=== PATIENT | female | born 1950 | race Caucasian/White ===

== ENCOUNTER 2024-08-14 22:16 | Emergency (ER) | payer MEDICARE, BC ==
[2024-08-14] MEDS ORDERED: Sodium Chloride 0.9% 10 ML Syringe FLUSH PRN (22:47)
[2024-08-14 23:06] LABS: BASOPHILS PERCENT AUTO 0.3 % (0.0-1.0); EOSINOPHILS ABSOLUTE AUTO 0.1 K/mm3 (0.0-0.4); EOSINOPHILS PERCENT AUTO 1.8 % (0.0-6.0); HEMATOCRIT 38.5 % (37.0-47.0); HEMOGLOBIN 12.8 gm/dl (12.0-16.0); IMMATURE GRAN ABSOLUTE AUTO 0.02 K/mm3 (0.00-0.05); IMMATURE GRAN PERCENT AUTO 0.3 % (0.0-0.4); LYMPHOCYTES ABSOLUTE AUTO 1.6 K/mm3 (1.0-4.8); LYMPHOCYTES PERCENT AUTO 22.7 % (24.0-44.0); MEAN CORPUSCULAR HEMOGLOBIN 29.2 pg (28.0-32.0); MEAN CORPUSCULAR HGB CONC 33.2 g/dl (32.0-36.0); MEAN CORPUSCULAR VOLUME 87.7 fl (83.0-99.0); MEAN PLATELET VOLUME 8.6 fl (9.4-12.3); MONOCYTES ABSOLUTE AUTO 0.7 K/mm3 (0.0-0.8); MONOCYTES PERCENT AUTO 9.9 % (0.0-8.0); NEUTROPHILS ABSOLUTE AUTO 4.7 K/mm3 (1.8-7.7); PLATELET COUNT,PLT 254 K/mm3 (150-400); RED BLOOD CELL COUNT 4.39 M/mm3 (4.10-5.30); WHITE BLOOD CELL COUNT,WBC 7.15 K/mm3 (3.9-11.3)
[2024-08-14] MEDS: Labetalol 100 MG/20 ML MDV IVPUSH ONE (23:12)
[2024-08-14 23:31] LABS: ALBUMIN 4.1 g/dl (3.4-5.0); BILIRUBIN TOTAL 0.4 mg/dL (0.2-1.0); CALCIUM 10.1 mg/dL (8.5-10.1); EST CRCL DRUG DOSING (CG) 41.97 mL/min; PROTEIN TOTAL,TP 8.2 g/dl (6.4-8.2)
[2024-08-15] MEDS: Iopamidol 755 Mg/ML 100 ML Bottle IVPUSH ONE (02:08)
== END 2024-08-15 03:14 | disposition home or self-care (01) ==
LOC: JD.ED 22:16
DX: R07.89 Other chest pain (principal); M54.6 Pain in thoracic spine; I10 Essential (primary) hypertension; Z88.2 Allergy status to sulfonamides
CPT/HCPCS: 36415; 71046; 71046-26; 71275; 71275-26; 80053; 83735; 84484; 85025; 85379; 93005; 93010; 96374; 99284; 99285-25; J1920; Q9967

== ENCOUNTER 2025-08-28 12:03 | Day surgery (SDC) | payer MEDICARE, BC ==
[~2025-08-28 12:03] MED LIST: Ofloxacin 0.3% Ophth Soln 5 ML Bottle EYERT SCH; Polymyxin B/Trimethoprim 10 ML Bottle EYERT SCH
[2025-08-28] MEDS: Pilocarpine 4% Ophth Soln 15 ML Bot EYERT SCH (12:15)
[2025-08-28] MEDS: Tropicamide 1% Ophth Soln 3 ML Bottle EYERT SCH (12:30)
[2025-08-28] MEDS: Tetracaine HCl/PF 0.5% 4 ML Bottle EYEBOTH SCH (13:30)
[2025-08-28] MEDS: Lidocaine 1% PF 2 ML SDV INJECT SCH (13:57)
[2025-08-28] MEDS: Cefuroxime 10 MG/ML SYRINGE EYERT SCH (14:08)
== END 2025-08-28 14:20 | disposition home or self-care (01) ==
LOC: JD.SDS 12:03
PROVIDERS: ATTEND Ophthalmology
DX: H25.811 Combined forms of age-related cataract, right eye (principal); H40.1131 Primary open-angle glaucoma, bilateral, mild stage; H16.223 Keratoconjunctivitis sicca, not specified as Sjogren's, bilateral; E78.00 Pure hypercholesterolemia, unspecified; I10 Essential (primary) hypertension; Z88.2 Allergy status to sulfonamides; Z96.1 Presence of intraocular lens; Z79.899 Other long term (current) drug therapy
CPT/HCPCS: A9270-GY; J0697; J3490